=== PATIENT | female | born 1990 | race Caucasian/White ===

== ENCOUNTER 2018-09-09 12:16 | Inpatient (IN) | payer OTHER ==
[2018-09-09] MEDS ORDERED: Lactated Ringer's 1,000 ML IV ONE (12:38)
[2018-09-09 12:58] LABS: BASO % 0.1 % (0.0-2.0); LYMPH # 2.1 K/uL (1.0-4.3); LYMPH % 9.1 % (20.0-40.0); MEAN CELL VOLUME 90.9 fL (81.0-99.0); MEAN CORPUSCULAR HEMOGLOBIN 31.4 pg (27.0-31.0); MEAN CORPUSCULAR HGB CONC 34.6 g/dL (33.0-37.0); MEAN PLATELET VOLUME 7.8 fL (7.2-11.7); MONO # 1.6 K/uL (0.0-0.8); MONO % 6.9 % (0.0-10.0); NEUT # 19.5 K/uL (1.8-7.0); NEUT % 83.9 % (50.0-75.0); NRBC % 0.1 % (0.0-2.0); PLATELET COUNT 284 K/uL (130-400); RBC 4.14 Mil/uL (3.80-5.20); RED CELL DISTRIBUTION WIDTH 13.9 % (11.5-14.5); WHITE BLOOD COUNT 23.3 K/uL (4.8-10.8)
--- NOTE | 2018-09-09 12:59 | OBADHP ---
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 PMH: GDMA1 PSH: denies FHX: non contribotyr MEDS: PNV NKDA SHX: negaive etoh/tobocc/dougs A/P @ 37.1 wks GA GDMA1 in labor admit to L+D npo, ivf admissin labs blood glucse pian managment Pelvic Type - PN: Adequate Extremities - PN: Normal Abdomen - PN: Normal Back - PN: Normal Breast - PN: Not Done Lungs - PN: Normal Heart - PN: Normal Thyroid - PN: Not Done Neurologic - PN: Normal HEENT - PN: Normal General - PN: Normal Presentation-Admit: Vertex FHR - Baseline A Provider: 155 Membranes, Provider: Bulging Contraction Comments Provider: q 2-3 min Gestation - Est Wks by US: 37.1 Vital Signs Provider: Reviewed; Within Normal Limits IP Chief Complaint: Uterine contractions NICHD Variability Prov Fetus A: Moderate 6-25bpm FHR Category Provider Fetus A: Category I NICHD Decel Fetus A IP Provider: None Dilatation, Provider: 6 Effacement, Provider: 70 Station, Provider: -1 Genitourinary Exam: Normal DTRs - PN: Normal EGA AdmitDate IP: 37.1 IP Adm Impression: Term, intrauterine
[2018-09-09] MEDS ORDERED: Penicillin G 5 Million Unit Vial IVPB ONE (13:00)
[2018-09-09] MEDS ORDERED: Oxytocin 30 UNIT 30 UNITS/500 ML BAG IV SCH (13:00)
--- NOTE | 2018-09-09 13:15 | OBHP ---
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 PMH: GDMA1 PSH: denies FHX: non contribotyr MEDS: PNV NKDA SHX: negaive etoh/tobocc/dougs A/P @ 37.1 wks GA GDMA1 in labor admit to L+D npo, ivf admissin labs blood glucse pian managment Pelvic Type - PN: Adequate Extremities - PN: Normal Abdomen - PN: Normal Back - PN: Normal Breast - PN: Not Done Lungs - PN: Normal Heart - PN: Normal Thyroid - PN: Not Done Neurologic - PN: Normal HEENT - PN: Normal General - PN: Normal Presentation-Admit: Vertex FHR - Baseline A Provider: 155 Membranes, Provider: Bulging Contraction Comments Provider: q 2-3 min Gestation - Est Wks by US: 37.1 EGA AdmitDate IP: 36.0 Vital Signs Provider: Reviewed; Within Normal Limits IP Chief Complaint: Uterine contractions NICHD Variability Prov Fetus A: Moderate 6-25bpm FHR Category Provider Fetus A: Category I NICHD Decel Fetus A IP Provider: None Dilatation, Provider: 6 Effacement, Provider: 70 Station, Provider: -1 Genitourinary Exam: Normal DTRs - PN: Normal
[2018-09-09 13:19] LABS: SQUAMOUS EPITHIAL 11 /hpf (0-5); URINE BACTERIA OCC (<OCC); WBC CLUMPS FEW /hpf
[2018-09-09 13:21] LABS: URINE BILIRUBIN SMALL (NEGATIVE); URINE BLOOD LARGE (NEGATIVE); URINE CLARITY Hazy (Clear); URINE COLOR YELLOW (YELLOW); URINE GLUCOSE (UA) NEGATIVE (Normal); URINE PROTEIN TRACE mg/dL (NEGATIVE); URINE UROBILINOGEN 0.2 mg/dL (0.2-1.0)
[2018-09-09 13:22] LABS: URINE LEUKOCYTE ESTERASE LARGE Leu/uL (Negative)
[2018-09-09] MEDS ORDERED: Oxytocin 30 UNIT 30 UNITS/500 ML BAG IV ONE (13:24)
[2018-09-09 13:26] LABS: BANDS 9 % (0-2); LYMPHOCYTE 10 % (20-40); MONOCYTE 7 % (0-10); NEUTROPHIL 74 % (50-75); PLATELET ESTIMATE NORMAL (NORMAL); TOTAL CELLS COUNTED 100
[2018-09-09 13:27] LABS: LARGE PLATELETS PRESENT
[2018-09-09] MEDS ORDERED: Bupivacaine HCl/FentaNYL Cit 100 ML EPI ONE (13:49)
[2018-09-09 13:57] LABS: HEPATITIS B SURFACE AG Negative (NEGATIVE)
[2018-09-09] MEDS ORDERED: Gentamicin 80 mg/2mL Inj. ONE (14:49)
--- NOTE | 2018-09-09 15:08 | OBPN ---
Datetime: 09/09/2018 14:43 IP Progress Impression: Normal progression of labor IP Procedures: Artificial ROM IP Progress Plan: Continue present management Membranes, Provider: Ruptured Contraction Comments Provider: q 2-3min FHR - Baseline A Provider: 170 Presentation-Admit: Vertex IP Progress Note Comment: pt admitted for labor, with srom, clear fluid, s/p epdidural with elevated termptaure. pt now reports she had soem white watery discharge after midinght followed by more sever e contracption pain. pt denies any chills, nause, vomiting, cp, sob, bowl or bladder compalint, sick contacts. Pt rperots feeling tired. VS see above PE see above VE: /-2, AROM clearn EMF: 160-170/mod ayesha TOCO: q 2-3 min A/P _ 36+ wks GDMA 1 DEREK 10/07/2018 (as per records ) with chorioamnioit -amp, gentamycin -tyeonol -oxygn, ivh -left lateral decumbitucs -pit augmentation as per pmd Vital Signs Provider: Reviewed Vital Signs Provider Details: Temp 101.9 FHR Category Provider Fetus A: Category II NICHD Variability Prov Fetus A: Moderate 6-25bpm Dilatation, Provider: 6 Effacement, Provider: 70 Station, Provider: -2 Datetime: 09/09/2018 12:54 Gestation - Est Wks by US: 37.1 NICHD Decel Fetus A IP Provider: None
[2018-09-09] MEDS: AMPicillin 2 GM in Sodium Chloride 100 ML IVPB SCH ×2 (15:10→21:51)
[2018-09-09] MEDS ORDERED: Lactated Ringer's 1,000 ML IV SCH (15:15)
[2018-09-09 15:31] LABS: ALB/GLOB RATIO 1.1 (1.0-2.1); ALBUMIN 3.8 g/dL (3.5-5.0); ALT/SGPT 10 U/L (9-52); AST/SGOT 22 U/L (14-36); BLOOD UREA NITROGEN 5 mg/dL (7-17); CALCIUM 9.7 mg/dl (8.6-10.4); GFR NON-AFRICAN AMERICAN > 60
[2018-09-09] MEDS ORDERED: AMPicillin 2 GM in Sodium Chloride 100 ML IVPB SCH (18:00)
[2018-09-09] MEDS ORDERED: Oxytocin 10 Units/ml Inj ONE (18:06)
--- NOTE | 2018-09-09 18:14 | OBADHP ---
Datetime: 09/09/2018 18:12 FHR - Baseline A Provider: 160 Contraction Comments Provider: q1-4 NICHD Variability Prov Fetus A: Moderate 6-25bpm Dilatation, Provider: 10 Effacement, Provider: 100 Station, Provider: 2 Datetime: 09/09/2018 14:43 Presentation-Admit: Vertex Membranes, Provider: Ruptured Vital Signs Provider: Reviewed Vital Signs Provider Details: Temp 101.9 FHR Category Provider Fetus A: Category II Datetime: 09/09/2018 12:54 Admit Comment, IP Provider: @ 37.1 wks GA DEREK 09/29/18 as per pmd c/o ctx since last night, incre asing intensity and frequency q 5 min /10, denies lof, vb, +FM.c/o some kulwinder over nigh 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
--- NOTE | 2018-09-09 18:14 | OBPN ---
Datetime: 09/09/2018 18:12 IP Progress Impression: Normal progression of labor Contraction Comments Provider: q1-4 FHR - Baseline A Provider: 160 IP Progress Note Comment: pt was examined at bed side fhr 160 mod pt pushing with contraction preeds in the room anticipate NICHD Variability Prov Fetus A: Moderate 6-25bpm Dilatation, Provider: 10 Effacement, Provider: 100 Station, Provider: 2
[2018-09-09] MEDS ORDERED: Oxycodone/Acetaminophen 5/325 mg Tab PO PRN ×2 (18:15)
--- NOTE | 2018-09-09 18:16 | OBDS ---
DELIVERY PERSONNEL Delivery Doctor: Rian Gomez MD Publications Distribution Clerk: Tenzin Lucio RN Anesthesiologist: tim MATERNAL INFORMATION Delivery Anesthesia: Epidural Maternal Complications: Other Other Maternal Complications: maternal fever RN Comments: antibiatic given Provider Comments: dr gomez [id number] baby deliverd in dop. no cord placent foul smel. placental mculture taken placent to [facility] cord gas cont antxs LABOR SUMMARY EDC: 10/07/2018 00:00 No. Babies in Womb: 1 Attempted: No Labor Anesthesia: Epidural LABOR INFORMATION Reason for Induction: Not Applicable Onset of Labor: 09/09/2018 02:00 Complete Dilatation: 09/09/2018 16:30 Cervical Ripening Agents: Prince Balloon Oxytocin: Augmentation Group B Beta Strep: Negative Antibiotics # of Doses: 2 Antibiotics Time of Last Dose: 1510 Steroids Given: None Reason Steroids Not Administered: Not Applicable MEMBRANES Membranes Rupture Method: Spontaneous Rupture of Membranes: 09/09/2018 13:14 Length of Rupture (hrs): 4.73 Amniotic Fluid Color: Clear Amniotic Fluid Amount: Small Amniotic Fluid Odor: Normal STAGES OF LABOR Stage 1 hrs: 14 Stage 1 min: 30 Stage 2 hrs: 1 Stage 2 min: 28 Stage 3 hrs: 0 Stage 3 min: 2 Total Time in Labor hrs: 16 Total Time in Labor min: 0 BABY A INFORMATION Infant Delivery Date/Time: 09/09/2018 17:58 Method of Delivery: Vaginal Born in Route : No : N/A Forceps: N/A Vacuum Extraction: N/A Shoulder Dystocia : No SHOULDER DYSTOCIA BABY A Infant Delivery Date/Time: 09/09/2018 17:58 PRESENTATION/POSITION BABY A Presentation: Cephalic Cephalic Presentation: Vertex Vertex Position: dop Breech Presentation: N/A PLACENTA INFORMATION BABY A Placenta Delivery Time : 09/09/2018 18:00 Placenta Method of Delivery: Spontaneous Placenta Status: Delivered SCORES BABY A Heart Rate 1 min: >100 bpm Resp Effort 1 min: Good Cry Reflex Irritability 1 min: Cough or Sneeze or Pulls Away Muscle Tone 1 min: Some Flexion of Extremities Color 1 min: Body Leach, Extremities Blue Resuscitation Effort 1 min: Tactile Stimulation; Oxygen SCORE 1 MIN: 8 Heart Rate 5 min: >100 bpm Resp Effort 5 min: Good Cry Reflex Irritability 5 min: Cough or Sneeze or Pulls Away Muscle Tone 5 min: Active Motion Color 5 min: Body Leach, Extremities Blue SCORE 5 MIN: 9 INFORMATION BABY A Gestational Age at Delivery: 36.0 Gestational Status: Infant Outcome : Liveborn Infant Condition : Stable Infant Sex: Female IDENTIFICATION/MEDS BABY A ID Band Number: [id number] ID Band Location: Left Leg; Left Arm Sensor Applied: Yes Sensor Number: [id number] Sensor Location : Cord Clamp WEIGHT/LENGTH BABY A Birthweight (gms): 2470 Infant Weight (lb): 5 Infant Weight (oz): 7 Infant Length Inches: 19.50 Length cms: 49.5 CORD INFORMATION BABY A No. Cord Vessels: 3 Nuchal Cord : N/A Cord Blood Taken: Yes Infant Suction: Mouth; Nose ASSESSMENT BABY A Infant Complications: Decreased Variability; Extended Tachycardia Physical Findings at Delivery: Molding of the Head Physical Findings Other: face presentation Remote Sensing Surveyor/ALS Called : No Infant Care By: dr muleln Transferred To: Nursery
[2018-09-10] MEDS: AMPicillin 2 GM in Sodium Chloride 100 ML IVPB SCH ×4 (02:24→21:00)
[2018-09-10] MEDS: Benzocaine/Menthol 20%-0.5% Topical Spray (60 ml) TOP PRN (03:44)
--- NOTE | 2018-09-10 07:14 | OBPPN ---
Datetime: 09/10/2018 07:08 PP Pain Prov: Within normal limits PP Nausea Prov: Denies PP Flatus Prov: Yes PP Abdomen/Uterus Prov: Normal PP Lochia Prov: Normal PP Extremities Prov: Normal PP Comments Phys Exam Prov: fundus below umb ext mild edema,no clf ten PP Impression Prov: Normal progression PP Plan Prov: Continue present management PP Progress Note Prov: pt was seen at bed josep, pain under control,no n/v, tolerating deit,voiding,mn lochia ppd# 1 feveer_ cont abxs cbc encourage ambulation waiting culturs pain ma cont pp care Vital Signs Provider PP: Reviewed; Within Normal Limits
[2018-09-10 08:23] LABS: BASO % 0.2 % (0.0-2.0); EOS # 0.1 K/uL (0.0-0.7); EOS % 0.5 % (0.0-4.0); LYMPH # 2.2 K/uL (1.0-4.3); LYMPH % 10.8 % (20.0-40.0); MEAN CELL VOLUME 91.8 fL (81.0-99.0); MEAN CORPUSCULAR HEMOGLOBIN 30.3 pg (27.0-31.0); MEAN CORPUSCULAR HGB CONC 32.9 g/dL (33.0-37.0); MONO # 1.5 K/uL (0.0-0.8); MONO % 7.2 % (0.0-10.0); NEUT # 16.6 K/uL (1.8-7.0); NEUT % 81.3 % (50.0-75.0); RBC 3.36 Mil/uL (3.80-5.20); RED CELL DISTRIBUTION WIDTH 14.2 % (11.5-14.5); WHITE BLOOD COUNT 20.4 K/uL (4.8-10.8)
[2018-09-10 08:27] LABS: HEMOGLOBIN 10.2 g/dL (11.0-16.0)
[2018-09-11] MEDS: AMPicillin 2 GM in Sodium Chloride 100 ML IVPB SCH ×4 (02:59→20:45)
--- NOTE | 2018-09-11 06:38 | OBPPN ---
Datetime: 09/11/2018 06:34 PP Pain Prov: Within normal limits PP Nausea Prov: Denies PP Flatus Prov: Yes PP BM Prov: Yes PP Abdomen/Uterus Prov: Normal PP Lochia Prov: Normal PP CVA Tenderness Prov: Not Done PP Extremities Prov: Normal PP Comments Phys Exam Prov: fundus below umblicus ext no edema,no calf ten PP Impression Prov: Normal progression PP Plan Prov: Continue present management PP Progress Note Prov: pt was seen at bed josep, pain under control,no n/v, tolerating deit,voiding,mn lochia ppd# 2 feveer_ cont abxs cbc encourage ambulation waiting culturs pain ma cont pp care Vital Signs Provider PP: Reviewed; Within Normal Limits
[2018-09-11] MEDS ORDERED: Influenza Vaccine 60 mcg/0.5 mL SYR (4YR UP) IM ONE (10:00)
[2018-09-11] MEDS: Benzocaine/Menthol 20%-0.5% Topical Spray (60 ml) TOP PRN (11:10)
[2018-09-12] MEDS: AMPicillin 2 GM in Sodium Chloride 100 ML IVPB SCH ×3 (03:14→14:14)
[2018-09-12 14:20] LABS: HEMOGLOBIN 10.8 g/dL (11.0-16.0); MEAN CELL VOLUME 92.1 fL (81.0-99.0); MEAN CORPUSCULAR HEMOGLOBIN 30.2 pg (27.0-31.0); MEAN CORPUSCULAR HGB CONC 32.8 g/dL (33.0-37.0); MEAN PLATELET VOLUME 8.1 fL (7.2-11.7); RBC 3.56 Mil/uL (3.80-5.20); RED CELL DISTRIBUTION WIDTH 14.1 % (11.5-14.5)
[2018-09-12 14:23] LABS: WHITE BLOOD COUNT 9.3 K/uL (4.8-10.8)
[2018-09-12 14:34] LABS: ALBUMIN 3.3 g/dL (3.5-5.0); ALT/SGPT 14 U/L (9-52); AST/SGOT 20 U/L (14-36); BLOOD UREA NITROGEN 4 mg/dL (7-17); CALCIUM 8.7 mg/dl (8.6-10.4); GFR NON-AFRICAN AMERICAN > 60
[2018-09-12 16:55] VITALS: PULSE 99; RESP 18; O2SAT 99
[2018-09-12 23:02] VITALS: BP 103/73; TEMP 97
== END 2018-09-12 19:01 | disposition home or self-care (01) | DRG 372 ==
LOC: C.EROB 12:16 → C.4D 12:47 → C.4M 21:34
PROVIDERS: ADMIT Obstetrics & Gynecology; ATTEND Obstetrics & Gynecology
PROC: 10E0XZZ Delivery of Products of Conception, External Approach (ICD-10-PCS; principal; 2018-09-09)
PROC: 10907ZC Drainage of Amniotic Fluid, Therapeutic from Products of Conception, Via Natural or Artificial Opening (ICD-10-PCS; 2018-09-09)
DX: O24.420 Gestational diabetes mellitus in childbirth, diet controlled (principal); O60.14X0 Preterm labor third trimester with preterm delivery third trimester, not applicable or unspecified; O32.3XX0 Maternal care for face, brow and chin presentation, not applicable or unspecified; O75.2 Pyrexia during labor, not elsewhere classified; O76 Abnormality in fetal heart rate and rhythm complicating labor and delivery; Z3A.36 36 weeks gestation of pregnancy; Z37.0 Single live birth